=== PATIENT | male | born 1975 | race African-American/Black ===

== ENCOUNTER 2017-04-12 20:58 | Emergency (ER) | payer OTHER ==
[~2017-04-12] VITALS: Ht 172.7 cm; Wt 93.4 kg
[~2017-04-12 20:58] MED LIST: IBUPROFEN600 MG ORAL; NKM
[2017-04-12 21:18] VITALS: BP 120/86
[2017-04-12] MEDS ORDERED: Ketorolac 30mg Inj IM ONE (21:30)
[2017-04-12] MEDS ORDERED: Norco 5mg/325mg tab PO ONE (21:30)
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
[2017-04-12] MEDS ORDERED: IBUPROFEN600 MG ORAL (22:41)
[2017-04-12] MEDS ORDERED: CYCLOBENZAPRINE10 MG ORAL (22:41)
[2017-04-12 22:48] VITALS: BP 120/86
--- NOTE | 2017-04-15 15:48 | Diagnostic Imaging Report ---
Indication: Back pain Technique: Lumbar spine 3 views Comparison: None Findings: There is no acute fracture. Lumbar alignment is within normal limits. There is mild narrowing of the L4/L5 and L5/S1 disc spaces. Bone mineralization is normal. Impression: No acute osseous abnormality. Findings as above.
== END 2017-04-12 22:48 | disposition home or self-care (01) ==
LOC: EMR 21:29
DX: M54.9 Dorsalgia, unspecified (principal); V43.52XA Car driver injured in collision with other type car in traffic accident, initial encounter; Y92.414 Local residential or business street as the place of occurrence of the external cause; F17.200 Nicotine dependence, unspecified, uncomplicated
CPT/HCPCS: 72020; 96372; 99284; J1885

== ENCOUNTER 2018-06-16 16:15 | Emergency (ER) | payer OTHER ==
[~2018-06-16] VITALS: Ht 172.7 cm; Wt 95.3 kg
[~2018-06-16 16:15] MED LIST changes: +CYCLOBENZAPRINE10 MG ORAL
--- NOTE | 2018-06-16 16:42 | NUR ---
ED Nurse Note: pt. reported frequent urinations and penial discomfort for 1 week, no discharge. A + O x4. AMbulatory. Skin warm to touch.
[2018-06-16 16:43] VITALS: BP 121/65
[2018-06-16 17:20] LABS: APPEARANCE,URINE CLEAR; BILIRUBIN, URINE NEGATIVE (NEGATIVE); COLOR,URINE PALE YELLOW; GLUCOSE, URINE (UA) NEGATIVE (NEGATIVE); KETONES,URINE NEGATIVE (NEGATIVE); LEUKOCYTE ESTERASE ,URINE 1+ (NEGATIVE); NITRITE,URINE NEGATIVE (NEGATIVE); PH,URINE 7 (4.5-8.0); PROTEIN,URINE 1+ (NEGATIVE); UROBILINOGEN,URINE 1 MG/DL (0.0-1.0)
[2018-06-16] MEDS ORDERED: Azithromycin 250mg tab ORAL ONE (17:45)
[2018-06-16] MEDS ORDERED: metroNIDAZOLE 500mg tab ORAL ONE (17:45)
[2018-06-16] MEDS ORDERED: Lidocaine 1% MPF 10mg/ml 5ml INJ ONE (17:45)
[2018-06-16 17:56] VITALS: BP 120/77
--- NOTE | 2018-06-16 17:57 | NUR ---
ER DISCHARGE NOTE: Patient is cleared to be discharged per ERMD, pt is aox4, on room air, with stable vital signs. pt was given dc and prescription instructions, pt was able to verbalize understanding, pt id band removed without complications. pt is able to ambulate with steady gait. pt took all belongings.
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
== END 2018-06-16 17:57 | disposition home or self-care (01) ==
LOC: EMR 17:00
DX: R30.0 Dysuria (principal); Z20.2 Contact with and (suspected) exposure to infections with a predominantly sexual mode of transmission
CPT/HCPCS: 81003; 96372; 96374; 99284; J0696; Q0144